=== PATIENT | female | born 2005 | race Caucasian/White ===

== ENCOUNTER 2025-07-20 10:30 | Emergency (ER) | payer OTHER, SELFPAY ==
[2025-07-20 10:34] VITALS: BP 122/91
--- NOTE | 2025-07-20 12:48 | ED.GENMED ---
History of Present Illness
General
Chief Complaint: Skin Problem
Source: patient
Exam Limitations: none
Time Seen by Provider: 07/20/25 12:16
Nursing documentation reviewed up to this point in time: agreed with
History of Present Illness
History of Present Illness:
Note:
CHIEF COMPLAINT(S)
Bilateral hand sensory changes described as burning and painful, headache, and intermittent migraine.
HISTORY OF PRESENT ILLNESS
The patient is a 19-year-old female presenting with bilateral hand sensory changes lasting for an unspecified period. She describes the sensation as burning and painful when touching objects, but she also states, 'its not really,' suggesting
variability or subjectivity in her experience. The patient is currently on medication for depression, and taking ibuprofen and tylenol for headache relief. She describes her headaches as severe, with some migraines being relieved by these
medications. Her headaches have been ongoing for approximately six months, with no previous doctor visits due to difficulties scheduling. Additionally, the patient experiences pins and needles sensations in her hands. She has never smoked, does not
use alcohol, and denies any drug use.
PLAN
1. Blood tests to assess for potential causes of the sensory changes and rule out electrolyte imbalances.
2. Scheduled CT scan of the brain to evaluate possible underlying causes of headaches and ensure no structural abnormalities.
3. Discuss headache management strategies and assess current medications for efficacy.
4. Discuss the importance of follow-up for monitoring of symptoms and any new developments.
DIFFERENTIAL DIAGNOSIS
The Differential Diagnosis includes, in no particular order and is not limited to:
1. Carpal Tunnel Syndrome
2. Migraine Headache
3. Peripheral Neuropathy
4. Nutritional Deficiency Neuropathy
5. Electrolyte Imbalance
6. Cervical Radiculopathy
7. Multiple Sclerosis
8. Systemic Lupus Erythematosus
9. Anemia
10. Anxiety-Related Sensory Symptoms
Physical Exam
General: no apparent distress, not acutely ill
Neck: supple. no meningeal signs. normal posterior pharynx
Heart: s1/s2 regular rate and rhythm, no murmur. equal radial
pulses.
HEENT: Pupils equal round reactive to light, EOMI
Lungs: no acute respiratory distress. clear bilaterally
Abdomen: normal bowel sounds. not tender. no CVAT
Neuro: alert and oriented. no focal neurological deficits cranial nerves II through XII intact
Skin: no rash
Psychiatric: well kept. interactive and cooperative
Extremities: no edema. no calf tenderness. negative homans. good distal pulses
Note:
CARE-UPDATE
07/20/25 - 15:23
Patient experiencing paresthesias with unclear etiology. Head CT normal, possibly related to migraines. Administered dose of Toradol. Adjusted treatment plan to include follow-up with neurology.
Disposition:
SUMMARY OF ENCOUNTER
A 19-year-old female presented with severe headaches, described as migraines, and bilateral hand sensory changes, such as burning and painful sensations when touching objects. The patients headaches have persisted for approximately six months.
Currently, she manages these with [id number]-[id number] medications: ibuprofen and acetaminophen (Tylenol�). She was administered ketorolac (Toradol�) in the emergency department to alleviate headache symptoms.
DISPOSITION
Discharge
PLAN
The patient will follow up with a neurologist for further evaluation of her chronic headaches.
MEDICATION RECONCILIATION
1. Ketorolac (Toradol�) was administered in the emergency department for headache relief.
2. The patient may continue to use acetaminophen and ibuprofen for headache management as needed.
MEDICAL DECISION MAKING
1. Number and Complexity of Problems Addressed: Chronic conditions affecting care include the patients ongoing headaches and bilateral hand sensory changes. The differential diagnosis considered includes Carpal Tunnel Syndrome, Migraine Headache,
Peripheral Neuropathy, Nutritional Deficiency Neuropathy, Electrolyte Imbalance, Cervical Radiculopathy, Multiple Sclerosis, Systemic Lupus Erythematosus, Anemia, and Anxiety-Related Sensory Symptoms.
2. Data:
- Category 1: Tests and documents: Not applicable based on available details.
- Category 3: Discussion of management or test interpretation: Discussed the plan and need for follow-up with a neurologist given the chronic nature of the symptoms.
3. Risk: Prescription medication was prescribed; ketorolac was administered, and the use of acetaminophen and ibuprofen was continued for headache management.
DIAGNOSIS
1. Migraine, unspecified, without intractable migraine, so stated without status migrainosus (ICD-10: G43.009)
2. 'Burning sensation' in hand (ICD-10: R20.0)
Phy Exam
Physical Exam
Physical Exam:
.
Course
Orders/Labs/Results
Orders:
Orders
07/20/25 12:47
CT Head W/o Iv Contrast Urgent
Comment:
Reason For Exam: headache, diffuse
Cardiac Monitoring- Treatment ONCE
07/20/25 12:48
Test Result ONCE
07/20/25 13:19
Complete Blood Count/With Diff Urgent
Comprehensive Metabolic Panel Urgent
HCG, Serum Qualitative Screen Urgent
Magnesium Urgent
07/20/25 14:44
Urinalysis Reflex To Culture Urgent
Date Specimen was Collected: 07/20/25
Time Specimen was Collected: 14:29
Urine Microscopic Reflex Cult Urgent
Urine Culture Urgent
YVETTE Source: U
Specimen Description:
Date Specimen was Collected: 07/20/25
Time Specimen was Collected: 14:29
Abnormal Lab Results
07/20/25 07/20/25
13:19 14:44
Hct 35.6 L %
(37.0-47.0)
MPV 10.7 H fL
(7.4-10.4)
Absolute Neuts (auto) 6.7 H 10^3/uL
(1.4-6.5)
Absolute Monos (auto) 0.9 H 10^3/uL
(0.1-0.6)
Leukocyte Esterase Rfl 1+ A
(Negative)
Urine Bacteria (Reflex) Few A
(Negative)
07/20/25 13:19
07/20/25 13:19
Vital Signs
Initial and Last Documented VS:
Initial Vital Signs
Temp Pulse Resp BP Pulse Ox
98.0 F 100 16 122/91 98
07/20/25 10:34 07/20/25 10:34 07/20/25 10:34 07/20/25 10:34 07/20/25 10:34
Last Documented Vital Signs
Temp Pulse Resp BP Pulse Ox
98.0 F 126 31 119/65 98
07/20/25 10:34 07/20/25 14:41 07/20/25 14:41 07/20/25 14:00 07/20/25 14:41
*Pulse Oximetry
SaO2: 98
Oxygen Mode of Delivery: Room air
Patient hypoxic: no
*Critical Care Note
Total Time (30-74mins, 75-104mins- exclusive of procedures): Not Applicable
ED Attending Note
-
Portions of this chart may have been created with voice recognition software.� Occasional wrong word or��sound alike� substitutions may have occurred due to the inherent limitations of voice recognition software.
Discharge Plan
Departure
Patient Disposition: Home (Routine Discharge)
Date of Disposition: 07/20/25
Time of Disposition: 15:25
Patient with high blood pressure during this ER visit?: No
Condition: Good
Discharge Problem:
Headache, Paresthesias
Instructions: Hand Numbness, Headache in adults - ED (DC)
Referrals:
Trini Plata MD [Non-Admitting Privileges, Psychiatry] - Call in 1-3 days for appt
Huma Browning MD [Family Provider]
Interventions
Interventions:
*Risk Screen - Suicide Last Done: 07/20/25 10:34
*General Assessment Last Done: 07/20/25 13:20
*Neglect/Abuse Screening Last Done: 07/20/25 10:34
*ED- Fall Risk Assessment Last Done: 07/20/25 13:20
*ED COVID-19 Vaccine History Last Done: 07/20/25 13:20
Discharge Date and Time
Print Language: [id number]
[2025-07-20 13:22] VITALS: BP 112/70
[2025-07-20 13:34] LABS: Hematocrit 35.6 % (37.0-47.0); Hemoglobin 12.4 g/dL (12.0-16.0); Mean Corp Hgb Conc. 34.8 g/dL (33.0-37.0); Mean Corpuscular Volume 82.8 fL (81.0-99.0); Nucleated Red Blood Cells % 0 %; Platelet Count 275 10^3/uL (130-400); Red Cell Dist. Width 12.1 % (11.5-14.5)
[2025-07-20 13:54] LABS: HCG, Serum Qualitative Screen Negative
[2025-07-20 14:00] VITALS: BP 119/65
[2025-07-20 14:01] LABS: ALT (SGPT) 18 U/L (0-35); AST (SGOT) 17 U/L (14-36); Albumin 4.7 g/dl (3.5-5.0); Alkaline Phosphatase 65 U/L (38-126); Blood Urea Nitrogen 15 mg/dl (7-17); Calcium 9.2 mg/dl (8.4-10.2); Carbon Dioxide 24 mmol/L (22-30); Chloride 106 mmol/L (98-107); Glucose 97 mg/dl (70-99); Magnesium 1.9 mg/dl (1.6-2.3); Potassium 3.9 mmol/L (3.5-5.1); Sodium 137 mmol/L (135-145); Total Protein 7.4 g/dl (6.3-8.2); eGFR > 60.00
[2025-07-20 14:54] LABS: Urine Character Clear (Clear)
[2025-07-20 15:07] VITALS: BP 110/66
[2025-07-20 15:19] LABS: Urine Red Blood Cell 0-2 /HPF (0-2); Urine Squamous Cell 16-20 /LPF (Few)
== END 2025-07-20 15:43 | disposition home or self-care (01) ==
LOC: EMR 10:30
PROVIDERS: EMERGENCY PHYSICIAN Emergency Medicine; FAMILY PHYSICIAN Pediatrics
DX: R51.9 Headache, unspecified (principal); R20.2 Paresthesia of skin; F32.A Depression, unspecified
CPT/HCPCS: 99284; 70450; 80053; 81003; 81015; 83735; 84703; 85025; 87086